=== PATIENT | male | born 1950 | race African-American/Black ===

== ENCOUNTER 2022-03-06 13:25 | Inpatient (IN) | payer MEDICARE, BC ==
[~2022-03-06] VITALS: Ht 172.7 cm; Wt 120.7 kg
[2022-03-06] MEDS ORDERED: IBUPROFEN 400MG TABLET PO ONE (14:30)
[2022-03-06] MEDS ORDERED: FOLIC ACID 1 MG, THIAMINE HCL 100 MG, MVI, ADULT NO.1 10 ML in DEXTROSE 5% WATER 1,000 ML IV ONE ×4 (14:30)
[2022-03-06] MEDS ORDERED: ACETAMINOPHEN 325MG TABLET PO ONE (14:30)
[2022-03-06 14:51] LABS: CHLORIDE 102 mEq/L (98-107); EOSINOPHILS % 7.7 % (0.0-5.0); HEMATOCRIT. 41.2 % (42.0-52.0); HEMOGLOBIN. 13.6 g/dL (14.0-18.0); LYMPHOCYTES % 30.9 % (20.0-50.0); MEAN CORPUSCULAR HEMOGLOBIN 31.9 pg (28.0-32.0); MEAN CORPUSCULAR VOLUME 96.6 fL (80.0-94.0); MONOCYTES % 13.1 % (2.0-8.0); NEUTROPHILS % 47.3 % (40.0-76.0); PLATELET 168 x1000/uL (130-400); RED BLOOD CELL COUNT 4.26 mill/uL (4.7-6.1)
[2022-03-06 15:04] LABS: ETHANOL BLOOD 40 mg/dL
[2022-03-06] MEDS: HYDROCODONE/ACETAMINOPHEN 10/325MG TABLET PO PRN (21:43)
[2022-03-06] MEDS ORDERED: NALOXONE HCL 0.4MG/ML VIAL IV PRN (21:45)
[2022-03-06 22:55] VITALS: BP 177/111
[2022-03-06] MEDS ORDERED: DAPA5TAB MT (23:19)
[2022-03-06] MEDS ORDERED: LOSA100T32 MT (23:20)
[2022-03-06] MEDS ORDERED: TAMS-11 MT (23:20)
[2022-03-06] MEDS ORDERED: CHLO25TA2 MT (23:20)
[2022-03-07] VITALS: BP 162/98
[2022-03-07] MEDS ORDERED: CLONIDINE 0.1MG TABLET PO PRN (00:15)
[2022-03-07 04:00] VITALS: BP 105/60
[2022-03-07] MEDS: HYDRALAZINE HCL 50MG TABLET PO SCH ×3 (05:20→21:46)
[2022-03-07 05:42] LABS: EOSINOPHILS % 9.3 % (0.0-5.0); HEMATOCRIT. 35.6 % (42.0-52.0); HEMOGLOBIN. 11.7 g/dL (14.0-18.0); MEAN CORPUSCULAR HEMOGLOBIN 31.6 pg (28.0-32.0); MEAN CORPUSCULAR VOLUME 95.7 fL (80.0-94.0); MEAN PLATELET VOLUME 10.1 fl (7.4-10.4); MONOCYTES % 11.4 % (2.0-8.0); NEUTROPHILS % 48.3 % (40.0-76.0); PLATELET 124 x1000/uL (130-400); RED BLOOD CELL COUNT 3.72 mill/uL (4.7-6.1); RED CELL DISTRIBUTION WIDTH 14.8 % (11.6-14.6)
[2022-03-07 08:00] VITALS: BP 122/69
[2022-03-07 08:19] LABS: CHLORIDE 98 mEq/L (98-107)
[2022-03-07 08:34] LABS: HDL CHOLESTEROL 42 mg/dL (40-59); LDL CHOLESTEROL 54 mg/dL (5-100)
[2022-03-07] MEDS: TAMSULOSIN HCL 0.4MG SR CAPSULE PO SCH (09:14)
[2022-03-07] MEDS: AMLODIPINE 10MG TABLET PO SCH (09:15)
[2022-03-07] MEDS: ASPIRIN 81MG TABLET PO SCH (09:16)
[2022-03-07] MEDS: HYDROCODONE/ACETAMINOPHEN 10/325MG TABLET PO PRN (09:16)
[2022-03-07 12:00] VITALS: BP 108/70
[2022-03-07] MEDS ORDERED: LORAZEPAM 1MG TABLET PO PRN (12:15)
[2022-03-07] MEDS: SODIUM CHLORIDE 0.9% 1,000 ML IV SCH (12:15)
[2022-03-07 16:00] VITALS: BP 29/75
[2022-03-07 19:40] LABS: CLARITY URINE CLEAR (CLEAR); COLOR URINE YELLOW (YELLOW); KETONES URINE NEGATIVE (NEGATIVE); LEUKOCYTE ESTERASE URINE NEGATIVE (NEGATIVE); NITRITE URINE NEGATIVE (NEGATIVE); OCCULT BLOOD URINE NEGATIVE (NEGATIVE); PH URINE 5.5 (4.5-8.0); PROTEIN URINE NEGATIVE (NEGATIVE); SPECIFIC GRAVITY URINE 1.009 (1.005-1.030)
[2022-03-07 20:00] VITALS: BP 121/86
[2022-03-08] VITALS: BP 149/89
[2022-03-08] MEDS: SODIUM CHLORIDE 0.9% 1,000 ML IV SCH ×2 (02:38→14:20)
[2022-03-08 04:00] VITALS: BP 124/81
[2022-03-08] MEDS: HYDRALAZINE HCL 50MG TABLET PO SCH ×2 (05:57→14:00)
[2022-03-08 07:27] LABS: BASOPHILS % 1.1 % (0.0-2.0); EOSINOPHILS % 11.7 % (0.0-5.0); HEMATOCRIT. 36.9 % (42.0-52.0); HEMOGLOBIN. 12.3 g/dL (14.0-18.0); LYMPHOCYTES % 28.7 % (20.0-50.0); MEAN CORPUSCULAR VOLUME 95.9 fL (80.0-94.0); MEAN PLATELET VOLUME 10.3 fl (7.4-10.4); MONOCYTES % 10.7 % (2.0-8.0); NEUTROPHILS % 47.8 % (40.0-76.0); PLATELET 122 x1000/uL (130-400); RED BLOOD CELL COUNT 3.84 mill/uL (4.7-6.1); RED CELL DISTRIBUTION WIDTH 14.9 % (11.6-14.6)
[2022-03-08 08:00] VITALS: BP 103/75
[2022-03-08] MEDS: ASPIRIN 81MG TABLET PO SCH (08:12)
[2022-03-08] MEDS: HYDROCODONE/ACETAMINOPHEN 10/325MG TABLET PO PRN (08:12)
[2022-03-08] MEDS: TAMSULOSIN HCL 0.4MG SR CAPSULE PO SCH (08:12)
[2022-03-08] MEDS: AMLODIPINE 10MG TABLET PO SCH (08:13)
[2022-03-08] MEDS ORDERED: THIAMINE HCL 100MG TABLET PO SCH (09:00)
[2022-03-08 12:00] VITALS: BP 134/82
[2022-03-08 18:22] VITALS: BP 134/82
[2022-03-09 09:06] LABS: IMMUNOGLOBULIN A 288 mg/dL (61-437); IMMUNOGLOBULIN G 1157 mg/dL (603-1613); IMMUNOGLOBULIN M 17 mg/dL (20-172)
== END 2022-03-08 18:54 | disposition home or self-care (01) | DRG 683 ==
LOC: ER 13:25 → 7WST 15:42 → EDBEDREQTM 15:51 → EDBEDREQ 15:51 → ENRESERV 22:36
PROVIDERS: ADMIT Internal Medicine; ATTEND Internal Medicine
DX: N17.0 Acute kidney failure with tubular necrosis (principal); D61.818 Other pancytopenia; E44.0 Moderate protein-calorie malnutrition; Z68.41 Body mass index [BMI] 40.0-44.9, adult; N18.4 Chronic kidney disease, stage 4 (severe); I12.9 Hypertensive chronic kidney disease with stage 1 through stage 4 chronic kidney disease, or unspecified chronic kidney disease; D72.10 Eosinophilia, unspecified; F10.129 Alcohol abuse with intoxication, unspecified; E78.5 Hyperlipidemia, unspecified; E66.9 Obesity, unspecified; R79.89 Other specified abnormal findings of blood chemistry; Z88.8 Allergy status to other drugs, medicaments and biological substances; Z82.49 Family history of ischemic heart disease and other diseases of the circulatory system; Z71.41 Alcohol abuse counseling and surveillance of alcoholic; S02.2XXA Fracture of nasal bones, initial encounter for closed fracture
CPT/HCPCS: 36415; 70486; 71045; 76770; 80048; 80053; 80061; 80320; 81003; 82550; 82784; 83036; 83615; 83735; 83880; 84100; 84484; 85025; 86334; 93005; 99285; J3411; J3490; J7030; J7070; G0480

== ENCOUNTER 2023-03-15 15:27 | Emergency (ER) | payer MEDICARE, BC ==
[~2023-03-15] VITALS: Ht 190.5 cm; Wt 123.0 kg
[~2023-03-15 15:27] MED LIST: CHLO25TA2 MT; DAPA5TAB MT; LOSA100T33 MT; TAMS-11 MT
[2023-03-15 15:28] VITALS: BP 138/92; PULSE 90; RESP 16; O2SAT 98
[2023-03-15 17:30] VITALS: TEMP 97.8
[2023-03-15] MEDS ORDERED: ACETAMINOPHEN 325MG TABLET PO ONE (17:30)
[2023-03-15] MEDS ORDERED: TOPUD MT (19:22)
== END 2023-03-15 23:16 | disposition left against medical advice (07) ==
LOC: ER 15:27
DX: M25.561 Pain in right knee (principal); I10 Essential (primary) hypertension; Z88.8 Allergy status to other drugs, medicaments and biological substances
CPT/HCPCS: 73560; 93971; 99284

== ENCOUNTER 2023-06-10 19:39 | Emergency (ER) | payer MEDICARE, BC ==
[~2023-06-10] VITALS: Ht 190.5 cm; Wt 127.0 kg
[~2023-06-10 19:39] MED LIST changes: +TOPUD MT
[2023-06-10 19:46] VITALS: O2SAT 96
[2023-06-10] MEDS ORDERED: ACETAMINOPHEN 325MG TABLET PO ONE (21:15)
[2023-06-10 22:00] VITALS: TEMP 98.5
[2023-06-10] MEDS ORDERED: MORPHINE SULFATE 4 MG/ML CPJ (NOT FOR IM USE) IV STA (23:56)
[2023-06-11] MEDS ORDERED: SODIUM CHLORIDE 0.9% 1,000 ML IV ONE
[2023-06-11 00:18] LABS: BASOPHILS % 0.9 % (0.0-2.0); HEMATOCRIT. 41.8 % (42.0-52.0); HEMOGLOBIN. 13.6 g/dL (14.0-18.0); LYMPHOCYTES % 30.1 % (20.0-50.0); MEAN CORPUSCULAR HEMOGLOBIN 30.7 pg (28.0-32.0); MEAN CORPUSCULAR HGB CONC 32.6 g/dL (31.0-37.0); MEAN CORPUSCULAR VOLUME 93.9 fL (80.0-94.0); MEAN PLATELET VOLUME 9.8 fl (7.4-10.4); MONOCYTES % 8.7 % (2.0-8.0); NEUTROPHILS % 51.3 % (40.0-76.0); PLATELET 200 x1000/uL (130-400); RED BLOOD CELL COUNT 4.45 mill/uL (4.7-6.1); RED CELL DISTRIBUTION WIDTH 13.4 % (11.6-14.6); WHITE BLOOD COUNT 4.4 x1000/uL (4.5-11.0)
[2023-06-11] MEDS ORDERED: HYDROCODONE/ACETAMINOPHEN 5/325MG TABLET PO ONE (00:30)
[2023-06-11 00:33] LABS: SODIUM 133 mEq/L (136-145)
[2023-06-11 00:34] LABS: ALANINE AMINOTRANSFERASE 10 IU/L (10-49); ALBUMIN 4.3 g/dL (3.2-4.8); ASPARTATE AMINOTRANSFERASE 17 IU/L (<34); BILIRUBIN TOTAL 0.8 mg/dL (0.1-1.0); CALCIUM 9.7 mg/dL (8.7-10.4); CARBON DIOXIDE 23 mEq/L (21-32); CHLORIDE 103 mEq/L (98-107); CREATININE 2.2 mg/dL (0.6-1.3); GLUCOSE 113 mg/dL (70-105); POTASSIUM 4.4 mEq/L (3.5-5.1); UREA NITROGEN BLOOD 33 mg/dL (9-23)
[2023-06-11 01:05] VITALS: BP 131/80; PULSE 74; RESP 18
== END 2023-06-11 01:09 | disposition left against medical advice (07) ==
LOC: ER 19:39 → EDBD 19:39 → ER 06-11 01:09
DX: I73.9 Peripheral vascular disease, unspecified (principal); M79.605 Pain in left leg; I10 Essential (primary) hypertension
CPT/HCPCS: 99284; 93970; 93923; 80053; 85025; 85610; 86850; 86900; 86901; 36415; J7030